=== PATIENT | female | born 1960 | race Two or more races ===

== ENCOUNTER 2024-02-08 10:07 | Day surgery (SDC) | payer BC ==
[2024-02-04 14:43] LABS: Basophils # (auto) 0 10 ^3/uL (0-0.2); Basophils % (auto) 0.5 % (0.0-2.0); Eosinophils # (auto) 0 10 ^3/uL (0-0.8); Hematocrit 41.5 % (36.0-46.0); Hemoglobin 14.2 g/dL (12.2-16.2); Lymphocytes # (auto) 1.5 10 ^3/uL (0.4-5.4); Lymphocytes % (auto) 30.3 % (10.0-50.0); Mean Corpuscular Hemoglobin 28.9 pg (28.0-32.0); Mean Corpuscular Hgb Conc. 34.3 g/dL (32.0-36.0); Mean Corpuscular Volume 84.3 fL (80.0-100.0); Monocytes # (auto) 0.4 10 ^3/uL (0-1.3); Monocytes % (auto) 8.1 % (0.0-12.0); Neutrophils # (auto) 3.1 10 ^3/uL (1.6-8.6); Neutrophils % (auto) 60.1 % (37.0-80.0); Nucleated Red Blood Cells % 0.2 %; Red Blood Cells 4.93 10^6/uL (4.0-5.20); Red Cell Distribution Width 13.4 % (11.8-14.3); White Blood Cell 5.1 10^3/uL (4.4-10.8)
[2024-02-04 15:02] LABS: INR 1.03 (0.9-1.15); Partial Thromboplastin Time 28.2 SEC (24.5-34.5); Prothrombin Time 10.9 sec (9.3-11.8)
[2024-02-04 15:03] LABS: Alanine Aminotransferase 18 U/L (7-40); Albumin 4.5 g/dL (3.2-4.8); Alkaline Phosphatase 52 U/L (46-116); Anion Gap 5 (5-15); Aspartate Aminotransferase 11 U/L (13-40); BUN/Creatinine Ratio 12.8 (10.0-20.0); Blood Urea Nitrogen 10 mg/dL (9-23); Calcium 9.4 mg/dL (8.5-10.1); Carbon Dioxide 27 mmol/L (20-30); Chloride 111 mmol/L (98-107); Glucose 92 mg/dL (74-106); Potassium 4.4 mmol/L (3.5-5.1); Sodium 143 mmol/L (136-145); Total Protein 6.5 g/dL (5.7-8.2)
[~2024-02-08] VITALS: Ht 170.2 cm; Wt 68.0 kg
[~2024-02-08 10:07] MED LIST: ALEN70TA21 PO
[2024-02-08] MEDS ORDERED: SODIUM CHLORIDE LOCK 10 ML ONE (13:28)
[2024-02-08] MEDS: fentaNYL CITRATE 100 MCG/2 ML VL ONE (14:01)
[2024-02-08] MEDS: MIDAZOLAM HCL 5 MG/ML-1ML VIAL ONE (14:01)
[2024-02-08] MEDS: diphenhdrAMINE HCL 50 MG/1 ML VL ONE (14:04)
[2024-02-08 14:32] VITALS: PULSE 57; RESP 22; TEMP 98.4; O2SAT 95
[2024-02-08 14:47] VITALS: BP 131/74; PULSE 55; RESP 16; O2SAT 99
== END 2024-02-08 15:03 | disposition home or self-care (01) ==
LOC: GI 10:07
PROVIDERS: ATTEND Internal Medicine Gastroenterology
DX: Z12.11 Encounter for screening for malignant neoplasm of colon (principal); D12.2 Benign neoplasm of ascending colon; D12.4 Benign neoplasm of descending colon; D12.5 Benign neoplasm of sigmoid colon; K57.30 Diverticulosis of large intestine without perforation or abscess without bleeding; K64.8 Other hemorrhoids; M81.0 Age-related osteoporosis without current pathological fracture; Z79.899 Other long term (current) drug therapy; Z98.890 Other specified postprocedural states
CPT/HCPCS: 36415; 45380; 45381; 45385; 80053; 85025; 85610; 85730; 88305; J1200; J2250; J3010; J7030; 99152; 99153